=== PATIENT | female | born 1990 | race Caucasian/White ===

== ENCOUNTER 2016-12-09 19:34 | Emergency (ER) | payer OTHER ==
[2016-12-09 20:11] VITALS: BMI 54.6
[2016-12-09] MEDS ORDERED: diphenhydrAMINE HCL 25 MG CAPSULE (FP) PO ONE ×2 (21:19→21:33)
--- NOTE | 2016-12-09 21:49 | PDOC ---
History of Present Illness - General Chief Complaint: Psychiatric Stated Complaint: ANXIETY Time Seen by Provider: 12/09/16 20:34 History Source: Patient Exam Limitations: No Limitations - History of Present Illness Initial Comments: CHIEF COMPLAINT: 26 y/o afebrile female with no significant PMH c/o panic attack today. HISTORY OF PRESENT ILLNESS: The patient states she's been under a lot of stress lately and at home this evening she had a panic attack and she states she felt SOB. She states the symptoms have now resolved and she feels better, except for an unsettled feeling in her stomach. She denies f/c, n/v/d, CP, palpitations, suicidal ideations, homicidal ideations. Vital signs on arrival are notable for pulse of 112. REVIEW OF SYSTEMS: GENERAL/CONSTITUTIONAL: Subjective fever/chills. No weakness. No weight change. HEAD, EYES, EARS, NOSE AND THROAT: No change in vision. No ear pain or discharge. No sore throat. CARDIOVASCULAR: No chest pain or shortness of breath. RESPIRATORY: No cough, wheezing, or hemoptysis. GASTROINTESTINAL: +unsettled stomach. No nausea, vomiting, diarrhea. GENITOURINARY: No dysuria, frequency, or change in urination. MUSCULOSKELETAL: No joint or muscle swelling or pain. No neck or back pain. SKIN: No rash or easy bruising. NEUROLOGIC: No headache, vertigo, loss of consciousness, or loss of sensation. PSYCHIATRIC: No depression or anxiety. +panic attack today PHYSICAL EXAM: GENERAL: The patient is awake, alert, and fully oriented, in no acute distress. She is well appearing and ambulatory. HEAD: Normal with no signs of trauma. ENT: Pupils equal, round and reactive to light, extraocular movements intact, sclera anicteric, conjunctiva clear. Neck supple. LUNGS: Clear to auscultation bilaterally. Normal excursion. No respiratory distress or use of accessory muscles. CV: RRR, S1/S2, no MRG. Cap refill < 2 sec. ABDOMEN: Soft, non-distended, non-tender even to deep palpation, no hepatomegaly or splenomegaly, no masses. EXTREMITIES: Normal range of motion, no edema. NEUROLOGICAL: Normal speech, normal gait. CN II-XII grossly intact. PSYCH: Normal mood, normal affect. SKIN: Warm, dry, normal turgor, no rashes or lesions noted. Past History - Past Medical History Allergies/Adverse Reactions: Allergies Allergy/AdvReac Type Severity Reaction Status Date / Time aspirin Allergy Verified 12/09/16 20:03 Home Medications: Ambulatory Orders NK [No Known Home Medication] 12/09/16 - Surgical History Abdominal Surgery: Yes (Reina tim) - Psycho/Social/Smoking Cessation Hx Suicidal Ideation: No Smoking History: Never smoked Number of Cigarettes Smoked Daily: 0 Information on smoking cessation initiated: No Hx Alcohol Use: No Drug/Substance Use Hx: No *Physical Exam - Vital Signs Last Vital Signs Temp Pulse Resp BP Pulse Ox 98.8 F 112 H 14 132/74 100 12/09/16 20:00 12/09/16 20:00 12/09/16 20:00 12/09/16 20:00 12/09/16 20:00 Heart Score/ECG Review - ECG Intrepretation Comment:: Twelve-lead EKG was performed and reviewed by Dr. Chambers. There is normal sinus rhythm with a normal rate. The axis is normal. The intervals are normal. There are no ST or T wave abnormalities. Impression: Normal twelve-lead EKG Medical Decision Making - Medical Decision Making A/p: 26 y/o female with panic attack today which she states has resolved. Plan is as follows: 1. EKG 2. PO benadryl EKG is NSR with HR = 76 bpm. The patient states she feels much better and wants to go home. She is no longer tachycardic. Provided a referral for psychiatrist if she feels she needs to follow up. Suggested she take benadryl if needed when feeling panicky. Pt instructed to return to the ER with any worsening or concerning symptoms. *DC/Admit/Observation/Transfer Diagnosis at time of Disposition: Panic attack as reaction to stress - Discharge Dispostion Disposition: HOME Condition at time of disposition: Improved - Referrals Referrals: Muna Starks MD [Staff Physician] - - Patient Instructions Printed Discharge Instructions: Anxiety and Panic Attacks (Alternative Therapy) Additional Instructions: Discharge Instructions: -Follow up with your primary care doctor within 1 week -A referral to a psychiatrist was added to your paperwork, should you feel you need a psychiatry follow up -Return to the ER with any worsening or concerning symptoms
[2016-12-09 22:20] VITALS: BP 102/49; PULSE 70; TEMP 98.3
--- NOTE | 2016-12-10 10:34 | EKG ---
Test Reason : Blood Pressure : / mmHG Vent. Rate : 076 BPM Atrial Rate : 076 BPM P-R Int : 122 ms QRS Dur : 078 ms QT Int : 386 ms P-R-T Axes : 066 030 050 degrees QTc Int : 434 ms NORMAL SINUS RHYTHM WITH SINUS ARRHYTHMIA NO PREVIOUS ECGS AVAILABLE Confirmed by DARY ZELAYA MD ([id number]) on 12/10/2016 10:34:00 AM Referred By: Confirmed By:DARY ZELAYA MD
== END 2016-12-09 22:35 | disposition home or self-care (01) ==
LOC: JER 19:34
DX: F43.0 Acute stress reaction (principal); F41.0 Panic disorder [episodic paroxysmal anxiety]
CPT/HCPCS: 93005; 93010; 99281-25

== ENCOUNTER 2018-09-18 06:35 | Inpatient (IN) | payer OTHER ==
[2018-09-18 07:29] VITALS: BMI 30.4
[2018-09-18] MEDS ORDERED: OXYTOCIN 20 UNITS in 0.9% NS 20 UNIT/1,000 ML INFUS.BAG IV ONE (07:52)
[2018-09-18] MEDS ORDERED: ONDANSETRON 4 MG/2 ML VIAL IVPUSH PRN (08:00)
[2018-09-18] MEDS ORDERED: morphine SULFATE/Preservative Free 0.5 MG/ML (1cc Syringe) ONE (08:06)
[2018-09-18] MEDS ORDERED: SUCCINYLCHOLINE CHLORIDE 200 MG/10 ML VIAL ONE (08:10)
--- NOTE | 2018-09-18 08:17 | HP ---
Past Medical History - Admission Chief Complaint: Scheduled RLTCS History of Present Illness: 28yo @ 39.0wks for scheduled No VB/LOF. No ctx. 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: Alzheimer's, CVA, Dementia, Migraine, Multiple Sclerosis, Peripheral Neuropathy, Parkinson's, Seizure, Syncope, TIA, Vertigo, Other Cardiovascular: No: AFIB, Aneurysm, Aortic Insufficiency, Aortic Stenosis, CAD, CHF, Deep Vein Thrombosis, HTN, Hyperlipdemia, [place], Mitral Insufficiency, Mitral Stenosis, Murmur, Pulmonary Hypertension, Other Pulmonary: No: Asthma, Bronchitis, Cancer, COPD, O2 Dependent, Pneumonia, Previously Intubated, Pulmonary Embolus, Pulmonary Fibrosis, Sleep Apnea, Other Gastrointestinal: No: Ascites, Cancer, Constipation, Crohn's Disease, Diverticulitis, Diverticulosis, Esophageal Varices, Gastritis, GERD, GI Bleed, Hemorrhoids, Hiatal Hernia, Inflamatory Bowel Disease, Irritable Bowel Disease, Pancreatitis, Peptic Ulcer Disease, Ulcerative Colitis, Other ...: 2 ...Para: 1 ...Term: 1 ...: 0 ...Spon : 0 ...Induced : 0 ...Multiple Gestation: 0 ...LMP: 12/19/17 ... Weeks Gestation by Dates: 39.0 ...EDC by Dates: 09/25/18 ...EDC by Sono: 09/25/18 Heme/Onc: No: Anemia, B12 Deficiency, Bleeding Disorder, Cancer, Current Chemotherapy, Current Radiation Therapy, Hemochromatosis, Hypercoaguable State, Myeloproliferative Synd, Sickle Cell Disease, Sickle Cell Trait, Thrombocytopenia, Other Infectious Disease: No: AIDS, C-Diff, Herpes Zoster, HIV, MRSA, STD's, Tuberculosis, VREF, Other Psych: No: Addictions, Anxiety, Bipolar, Depression, Panic, Psychosis, Schizophrenia, Other Musculoskeletal: No: Bursitis, Chronic low back pain, Hemiparesis, Hemiplegia, Osteoarthritis, Paraplegia, Other Rheumatology: No: Fibromyalgia, Gout, Lupus, Rheumatoid Arthritis, Sarcoidosis, Vasculitis, Other ENT: No: Allergic Rhinitis, Sinusitis, Other - Past Surgical History Hx Myomectomy: No Hx Transabdominal Cerclage: No - Smoking History Smoking history: Never smoked Have you smoked in the past 12 months: No Aproximately how many cigarettes per day: 0 - Alcohol/Substance Use Hx Alcohol Use: No Home Medications - Allergies Allergies/Adverse Reactions: Allergies Allergy/AdvReac Type Severity Reaction Status Date / Time aspirin Allergy Swelling Verified 09/18/18 07:30 - Home Medications Home Medications: Ambulatory Orders NK [No Known Home Medication] 12/09/16 Physical Exam - Maternity Vital Signs: Vital Signs Temperature 98.5 F 09/18/18 06:35 Pulse Rate 86 09/18/18 06:35 Respiratory Rate 18 09/18/18 06:35 Blood Pressure 136/75 09/18/18 06:35 O2 Sat by Pulse Oximetry (%) Constitutional: Yes: Well Nourished, No Distress, Calm Eyes: Yes: WNL, Conjunctiva Clear, EOM Intact HENT: Yes: WNL, Atraumatic, Normocephalic Neck: Yes: WNL, Supple, Trachea Midline Cardiovascular: Yes: WNL, Regular Rate and Rhythm Breast(s): Yes: WNL - Abdominal Exam/OB Number of Fetuses: Single Presentation: Vertex Contractions: No Category: I Accelerations: Uniform Decelerations: None - Vaginal Exam/OB Vaginal Bleediing: No Amniotic Membrane Status: Intact Presentation: Vertex/Position Assessment/Plan 28yo @ 39.0wks here for scheduled RLTCS Admit to L&D NPO, IVFs Ancef SCDs Risk of procedure explained, including bleeding, infection and injury to bladder , bowel, tubes, ovaries, nerves/arteries/veins.
[2018-09-18] MEDS ORDERED: CITRIC ACID/SODIUM CITRATE 30 ML UNIT-DOSE CUP PO ONE ×2 (08:18→08:19)
[2018-09-18] MEDS ORDERED: ePHEDrine SULFATE 50 MG/1 ML AMPULE ONE (08:51)
[2018-09-18] MEDS ORDERED: OXYTOCIN 10 UNITS/ML VIAL ONE (09:05)
[2018-09-18] MEDS ORDERED: ceFAZolin 2 GRAM PREMIX BAG IVPB ONE (09:30)
--- NOTE | 2018-09-18 09:37 | OP ---
Operative Note - Note: Operative Date: 09/18/18 Pre-Operative Diagnosis: 39week , desires repeat Operation: Repeat Low Transverse Findings: VMI, LISSET, No nuchal or meconium. Weight pending. Apgars 99. Normal tubes and ovaries Post-Operative Diagnosis: Same as Pre-op Surgeon: Karina Muller E Learning Specialist: Mart Galvez Anesthesia: Spinal Estimated Blood Loss (mls): 500 Drains, Volume Out (mls): 400 (clear urine) Operative Report Dictated: Yes
[2018-09-18] MEDS ORDERED: oxyCODONE HCL 5 MG TABLET PO PRN (09:55)
[2018-09-18] MEDS ORDERED: IBUPROFEN 800 MG/8 ML IJ IVPB PRN (09:55)
[2018-09-18] MEDS ORDERED: ACETAMINOPHEN 325 MG TABLET (FP) PO PRN (09:55)
[2018-09-18] MEDS ORDERED: ELECTROLYTE-148 SOLN 1,000 ML IV SCH (10:00)
--- NOTE | 2018-09-18 15:12 | OP ---
DATE OF OPERATION: 09/18/2018 PROCEDURE: Repeat low transverse section. PREOPERATIVE DIAGNOSIS: A 39-week , history of prior delivery , desired elective repeat. POSTOPERATIVE DIAGNOSIS: A 39-week , history of prior delivery, desired elective repeat. SURGEON: Karina Muller MD AUTO CLEANER: MYA Delgado ANESTHESIA: Spinal. IV FLUIDS: Per anesthesia record. ESTIMATED BLOOD LOSS: 500. URINE OUTPUT: 400 mL of clear urine. FINDINGS: Viable male , LISSET. No nuchal. No meconium. Weight pending. Apgars 9, 9. Normal tubes and ovaries bilaterally. COMPLICATIONS: None. CONDITION: Stable to recovery unit. DESCRIPTION OF PROCEDURE: After the appropriate consents were signed, the patient was taken to the operating room where spinal anesthesia was administered. She was placed in supine position with a left lateral tilt. A Wilhelm catheter had been inserted in the preoperative area. The abdomen was then prepped and draped in the normal sterile fashion. A time-out was done confirming correct patient and procedure. A Pfannenstiel incision was made and carried through to the underlying layers in which the fascia was nicked in the midline. The fascia was then extended bilaterally with the Ritchie scissors. The inferior aspect of the fascia was then grasped with 2 Mayte clamps, elevated, and tented upward. The rectus muscles were dissected off with the Ritchie scissors. Attention was then paid to the superior aspect of the fascia, which was also grasped with Kochers, tented upwards. Due to dense adhesions, this was taken down with scalpel. The rectus muscles were in the midline with a scalpel. The peritoneum was entered after being grasped and tented upwards and entered with the Metzenbaum scissors. The peritoneal incision was then extended bluntly. Bladder blade was inserted. Abdomen was checked and cleared of adhesions; however, the rectus muscles midline were tight and not going to be able to accommodate delivery. The rectus muscles were then incised with a Bovie cautery in the midline to accommodate space to help ease of the delivery. Bladder flap was then created with the Metzenbaum scissors. The bladder blade was readjusted. The uterus was incised in a low transverse fashion. Clear amniotic fluid was noted. The infant's head was delivered with the assistance of a vacuum. No popoffs were obtained. The cord was clamped and cut. The was handed off to the pediatric staff. The placenta was removed manually. The uterus was cleared of clot and debris. The uterus was exteriorized and closed in a single imbricating layer with a 0 Vicryl. The left edge of the hysterotomy was reinforced with a [id number] suture of 0 Vicryl to achieve hemostasis. The uterus was then reintroduced back into the abdominal cavity. Bladder blade was reinserted. The hysterotomy was noted to be hemostatic. The gutters were cleared of clot and debris. The bladder blade was removed. The rectus muscles were reapproximated with a mattress suture of 2-0 chromic. Hemostasis was noted. The fascia was closed with 0 Vicryl. Skin was closed with rhonda. Appropriate dressing and bandages were placed. The patient did receive 2 g of Ancef at the start of the procedure. All sponge, lap, needle counts were correct x3. The patient was taken from the operating room to the recovery area in stable condition. KARINA MULLER MD [id number] MTDD
[2018-09-19] MEDS: ACETAMINOPHEN 325 MG TABLET (FP) PO PRN ×2 (06:18→19:39)
[2018-09-19] MEDS: SIMETHICONE 80 MG TAB.CHEW (FP) PO PRN ×2 (06:18→19:38)
[2018-09-19] MEDS: IBUPROFEN 600 MG TABLET (FP) PO PRN ×2 (06:19→19:39)
--- NOTE | 2018-09-19 08:48 | PN ---
Post Progress Note - Subjective Subjective: 34 yo Para 2 status post vaginal delivery seen and evaluated. Doing well Post Day: 1 Type of Delivery: Repeat C/S Vital Signs: Vital Signs Temperature 98.1 F 09/19/18 06:00 Pulse Rate 96 H 09/19/18 06:00 Respiratory Rate 20 09/19/18 08:25 Blood Pressure 108/59 L 09/19/18 06:00 O2 Sat by Pulse Oximetry (%) Breast Exam: Yes: Soft Uterus: Yes: Fundus Firm Incision: Yes: Dressing dry and intact Abdomen/GI: Yes: Abdomen soft Lochia: Yes: Rubra Lochia, amount: Small Extremities: Yes: Calves non-tender Activity: Ambulating Problem List - Problems (1) Status post Code(s): Z98.891 - HISTORY OF UTERINE SCAR FROM PREVIOUS SURGERY Assessment/Plan Status post . Stable Ambulation Analgesia as needed Continue routine post op care
--- NOTE | 2018-09-19 15:44 | PN ---
Progress Note (short form) - Note Progress Note: Anesthesia postop note 28y/o F s/p spinal anesthesia, duramorph for postop pain management POD#1, vss, aaox3, pain well controlled, sensory motor intact distally No anesthesia complications.
--- NOTE | 2018-09-20 08:42 | PN ---
Post Progress Note - Subjective Subjective: no c/o pain , scale 2-3/10 voiding without difficulty bm done Post Day: 2 Type of Delivery: Repeat C/S Vital Signs: Vital Signs Temperature 97.6 F 09/20/18 08:03 Pulse Rate 69 09/20/18 08:03 Respiratory Rate 20 09/20/18 08:03 Blood Pressure 119/61 09/20/18 08:03 O2 Sat by Pulse Oximetry (%) Breast Exam: Yes: Soft, Other (bottle 7 bF ). No: Engorged Uterus: Yes: Fundus Firm, Fundus below umbilicus, Non-tender Incision: Yes: [place] intact. No: Redness, Oozing Abdomen/GI: Yes: Abdomen soft, Passing flatus, Tolerating PO (diet ). No: Abdominal Distention, Tender Lochia: Yes: Rubra Lochia, amount: Small Extremities: Yes: Calves non-tender Perineum: Yes: Intact Activity: Ambulating Problem List - Problems (1) delivery delivered Code(s): O82 - ENCOUNTER FOR DELIVERY WITHOUT INDICATION (2) Encounter for visit Code(s): Z39.2 - ENCOUNTER FOR ROUTINE FOLLOW-UP Assessment/Plan post op cbc pending encourage ambulation pt requests discharge tomorrow.
[2018-09-20] MEDS: ACETAMINOPHEN 325 MG TABLET (FP) PO PRN (22:07)
[2018-09-20] MEDS: IBUPROFEN 600 MG TABLET (FP) PO PRN (22:07)
[2018-09-20] MEDS: SIMETHICONE 80 MG TAB.CHEW (FP) PO PRN (22:07)
[2018-09-20 22:17] VITALS: TEMP 97.7
[2018-09-21 08:12] LABS: BASO % 0.5 % (0-2.0); EOS % 1.8 % (0-4.5); HEMATOCRIT 34.1 % (32.4-45.2); HEMOGLOBIN 11.4 GM/dL (10.7-15.3); MCHC 33.5 g/dl (32.0-36.0); MEAN CELL VOLUME 95.4 fl (80-96); MEAN PLT VOLUME 9.9 fl (7.5-11.1); MONO % 6.6 % (3.8-10.2); NEUT % 77.1 % (42.8-82.8); PLATELET COUNT 153 K/MM3 (134-434); RBC 3.57 M/mm3 (3.60-5.2); RDW 13.4 % (11.6-15.6); WHITE BLOOD COUNT 10.4 K/mm3 (4.0-10.0)
[2018-09-21 08:38] VITALS: BP 116/63; PULSE 68
--- NOTE | 2018-09-21 11:26 | DS ---
Physical Examination Vital Signs: Vital Signs Temperature 97.7 F 09/21/18 08:37 Pulse Rate 68 09/21/18 08:37 Respiratory Rate 20 09/21/18 08:37 Blood Pressure 116/63 09/21/18 08:37 O2 Sat by Pulse Oximetry (%) Constitutional: Yes: Well Nourished, No Distress, Calm Eyes: Yes: WNL, Conjunctiva Clear, EOM Intact HENT: Yes: WNL, Atraumatic, Normocephalic Neck: Yes: WNL, Supple, Trachea Midline Cardiovascular: Yes: WNL, Regular Rate and Rhythm Respiratory: Yes: WNL, Regular, CTA Bilaterally Gastrointestinal: Yes: WNL, Normal Bowel Sounds Musculoskeletal: Yes: WNL Extremities: Yes: WNL Edema: No Integumentary: Yes: WNL Neurological: Yes: WNL, Alert, Oriented ...Motor Strength: WNL Psychiatric: Yes: WNL Labs: CBC, BMP 09/21/18 07:00 Discharge Summary Reason For Visit: Current Active Problems delivery delivered (Acute) Encounter for visit (Acute) Status post (Acute) Hospital Course: Patient presented for a repeat . She met all postoperative milestones and was discharged home on POD#3 Condition: Good - Instructions Diet, Activity, Other Instructions: return to clinic in 1 week for rhonda removal and 6 weeks for check. call [facility] for appointment. Disposition: HOME - Home Medications Comprehensive Discharge Medication List: Ambulatory Orders NK [No Known Home Medication] 12/09/16 Ibuprofen 600 mg PO Q6H PRN #30 tablet 09/21/18 Oxycodone HCl/Acetaminophen [Percocet 5-325 mg Tablet -] 1 - 2 tab PO Q6H PRN # 20 tab MDD 4 09/21/18
--- NOTE | 2018-09-22 18:03 | PATH ---
Surgical Pathology Report Patient Name: COMFORT MCCONNELL [facility]. Rec. #: [id number] /Age/Gender: 1990 (Age: 28) / F Account: [id number] Location: [facility] OBS/CARDIAC MONITOR Taken: 09/18/2018 Received: 09/19/2018 Reported: 09/22/2018 Physicians: Karina Muller Specimen(s) Received PLACENTA Clinical History , 2009 Final Diagnosis PLACENTA, SECTION: 490 G THIRD TRIMESTER PLACENTA WITH TRIVASCULAR UMBILICAL CORD AND UNREMARKABLE PLACENTAL MEMBRANES. Electronically Signed Radha Santiago M.D. Gross Description The specimen is received fresh labeled placenta and is a 490 gram, 16.0 x 14.0 x 3.2 cm. placenta with attached membranes and umbilical cord. The attached membranes are cortés, translucent with focal opacities and insert marginally. The umbilical cord measures 32 cm. in length and averages 1 cm. in diameter. The cord inserts eccentrically, 3.5 cm. to the nearest margin. No true knots or strictures are identified. Cut surface of the umbilical cord reveals 3 vessels. The surface is kessler-blue with minimal fibrin deposition and appropriate caliber vessels. The maternal surface is red-brown with focal defects. Sectioning reveals red-brown, spongy parenchyma. No lesions are identified. Sas Architect sections are submitted in three cassettes as follows: 1- membrane rolls and umbilical cord; 2-3- full thickness sections of placenta. saudi/09/21/2018
== END 2018-09-21 16:00 | disposition home or self-care (01) | DRG 540 ==
LOC: JLDR 06:35 → J3W 11:10
PROVIDERS: ADMIT Obstetrics & Gynecology; ATTEND Obstetrics & Gynecology
PROC: 10D00Z1 Extraction of Products of Conception, Low, Open Approach (ICD-10-PCS; principal; 2018-09-18)
DX: O34.211 Maternal care for low transverse scar from previous cesarean delivery (principal); Z3A.39 39 weeks gestation of pregnancy; Z37.0 Single live birth
CPT/HCPCS: 36415; 85025; 88307-TC

== ENCOUNTER 2019-03-31 18:09 | Emergency (ER) | payer OTHER | END 2019-03-31 21:09 | disposition home or self-care (01) | LOC: JER 18:09 ==

== ENCOUNTER 2019-11-02 06:35 | Inpatient (IN) | payer OTHER ==
[2019-11-02] MEDS ORDERED: ONDANSETRON 4 MG/2 ML VIAL IVPUSH PRN (07:53)
[2019-11-02] MEDS ORDERED: IBUPROFEN 800 MG/8 ML IJ IVPB PRN ×3 (07:55→09:48)
[2019-11-02] MEDS ORDERED: OXYTOCIN 20 UNITS in 0.9% NS 40 UNIT/2,000 ML INFUS.BAG IV ONE (07:59)
[2019-11-02] MEDS ORDERED: CITRIC ACID/SODIUM CITRATE 30 ML UNIT-DOSE CUP PO ONE (08:00)
[2019-11-02] MEDS ORDERED: ELECTROLYTE-148 SOLN 500 ML IV SCH (08:00)
[2019-11-02] MEDS ORDERED: ceFAZolin SODIUM 1 GM VIAL ONE (08:01)
[2019-11-02] MEDS ORDERED: PHENYLEPHRINE HCL 10 MG/1 ML SINGLE DOSE VIAL ONE (08:01)
[2019-11-02] MEDS ORDERED: morphine SULFATE/PF 0.5 MG/ML (2cc Syringe - QUVA) ONE (08:02)
[2019-11-02] MEDS ORDERED: ELECTROLYTE-148 SOLN 1,000 ML IV SCH ×2 (08:30)
--- NOTE | 2019-11-02 08:33 | HP ---
Past Medical History - Admission Chief Complaint: Scheduled RLTCS History of Present Illness: 29yo @ 39+wks here for scheduled RLTCS, BTL. No VB/LOF. No ctx. 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: Alzheimer's, CVA, Dementia, Migraine, Multiple Sclerosis, Peripheral Neuropathy, Parkinson's, Seizure, Syncope, TIA, Vertigo, Other Cardiovascular: No: AFIB, Aneurysm, Aortic Insufficiency, Aortic Stenosis, CAD, CHF, Deep Vein Thrombosis, HTN, Hyperlipdemia, [place], Mitral Insufficiency, Mitral Stenosis, Murmur, Pulmonary Hypertension, Other Pulmonary: No: Asthma, Bronchitis, Cancer, COPD, O2 Dependent, Pneumonia, Previously Intubated, Pulmonary Embolus, Pulmonary Fibrosis, Sleep Apnea, Other Gastrointestinal: No: Ascites, Cancer, Constipation, Crohn's Disease, Diverticulitis, Diverticulosis, Esophageal Varices, Gastritis, GERD, GI Bleed, Hemorrhoids, Hiatal Hernia, Inflamatory Bowel Disease, Irritable Bowel Disease, Pancreatitis, Peptic Ulcer Disease, Ulcerative Colitis, Other Renal/: No: Renal Failure, Renal Inusuff, BPH, Cancer, Hematuria, Hemodialysis , Neurogenic Bladder, Renal Calculi, UTI, Other Reproductive: No: Ectopic , Endometriosis, Fibroids, PID, Polycystic Ovary Syndrome, Postmenopausal, Other ...: 3 ...Para: 2 ...Term: 2 ...: 0 ...Spon : 0 ...Induced : 0 ...Multiple Gestation: 0 ... Weeks Gestation by Dates: 39.3 ...EDC by Dates: 11/06/19 ...EDC by Sono: 11/06/19 Heme/Onc: Yes: Anemia Infectious Disease: No: AIDS, C-Diff, Herpes Zoster, HIV, MRSA, STD's, Tuberculosis, VREF, Other Psych: No: Addictions, Anxiety, Bipolar, Depression, Panic, Psychosis, Schizophrenia, Other Musculoskeletal: No: Bursitis, Chronic low back pain, Hemiparesis, Hemiplegia, Osteoarthritis, Paraplegia, Other Rheumatology: No: Fibromyalgia, Gout, Lupus, Rheumatoid Arthritis, Sarcoidosis, Vasculitis, Other - Past Surgical History Past Surgical History: Yes: Hx Myomectomy: No Hx Transabdominal Cerclage: No Additional Surgical History: Abdominoplasty, Gluteal Enhancement - Smoking History Smoking history: Never smoked Have you smoked in the past 12 months: No Aproximately how many cigarettes per day: 0 - Alcohol/Substance Use Hx Alcohol Use: No Home Medications - Allergies Allergies/Adverse Reactions: Allergies Allergy/AdvReac Type Severity Reaction Status Date / Time aspirin Allergy Swelling Verified 11/02/19 07:49 - Home Medications Home Medications: Ambulatory Orders Mv-Mn/Iron/FA/Herbal/Digestive [ One Tablet] 1 tab PO DAILY 11/02/19 Review of Systems - Review of Systems Constitutional: denies: No Symptoms, Chills, Diaphoresis, Fever, Lethargy, Loss of Appetite, Malaise, Night Sweats, Unintentional Wgt. Loss, Weakness, Other Cardiovascular: denies: No Symptoms, Chest Pain, Edema, Palpitations, Shortness of Breath, Other Respiratory: denies: No Symptoms, Cough, Exercise Intolerance, Hemoptysis, Orthopnea, PND, Snoring, SOB, SOB on Exertion, Wheezing, Other Physical Exam - Maternity - Abdominal Exam/OB Number of Fetuses: Single Presentation: Vertex Contractions: No Accelerations: Non-Uniform Decelerations: None - Vaginal Exam/OB Vaginal Bleediing: No Presentation: Vertex/Position Assessment/Plan 29yo @ 39+wks here for scheduled RLTCS Admit to L&D NPO, IVFs Ancef SCDs Risks reviewed. All questions answered. Consent signed. Nikki Muller MD
[2019-11-02] MEDS ORDERED: DEXAMETHASONE SOD PHOSPHATE 4 MG/1 ML VIAL ONE (09:17)
--- NOTE | 2019-11-02 09:29 | PN ---
Progress Note (short form) - Note Progress Note: Attended RPt C/S for this 29yrs old G3P@002 mother with PNL- nl GBS- Pos not in labor. delivered - clear fluid, criedsoon after suctioned/ dried cord 3V 9/9 InfantPE: clinically stable- pink well perfused Not in Distress Rest PE. nl for age. RNBC Watch for Resp distress Encourage Bf/ Bonding
[2019-11-02] MEDS ORDERED: oxyCODONE HCL 5 MG TABLET PO PRN (09:48)
--- NOTE | 2019-11-02 09:48 | OP ---
Operative Note - Note: Operative Date: 11/02/19 Pre-Operative Diagnosis: 39 week , 2 prior C/S, desires Repeat C- Section, Desires permanent sterilization Operation: Repeat Findings: VMI, Direct OP, Apgars 9/9, Weight 8.10lbs, Normal tubes and ovaries Post-Operative Diagnosis: Same as Pre-op Surgeon: Karina Muller Medieval English Literature Professor: Mart Galvez Anesthesia: Spinal Estimated Blood Loss (mls): 600 Drains, Volume Out (mls): 100 (clear urine) Operative Report Dictated: Yes
[2019-11-02] MEDS: OXYTOCIN 20 UNITS in 0.9% NS 20 UNIT/1,000 ML INFUS.BAG IV SCH ×2 (10:00→17:54)
[2019-11-02 10:20] VITALS: BMI 30.2
[2019-11-02] MEDS: PRENATAL VITAMINS W/ FOLIC ACID TABLET (FP) PO SCH (10:36)
[2019-11-02] MEDS ORDERED: OXYTOCIN 20 UNITS in 0.9% NS 20 UNIT/1,000 ML INFUS.BAG IV ONE ×2 (11:47→17:52)
[2019-11-02] MEDS: METHYLERGONOVINE MALEATE 0.2 MG/1 ML AMP IM PRN ×2 (14:04→15:00)
[2019-11-02] MEDS ORDERED: CARBOPROST TROMETHAMINE 250 MCG/ML AMPUL IM STA (15:00)
[2019-11-02] MEDS: ACETAMINOPHEN 1000 MG/100 ML VIAL (NON FORMULARY) IVPB PRN (15:19)
[2019-11-02] MEDS ORDERED: DIPHENOXYLATE 2.5/ATROPINE.025 1 COMBO TABLET PO STA ×2 (15:20→15:21)
[2019-11-02] MEDS ORDERED: LOPERAMIDE HCL 2 MG CAPSULE PO ONE ×2 (15:45)
--- NOTE | 2019-11-02 16:45 | PN ---
Progress Note (short form) - Note Progress Note: was called to see patient post repeat c/s with increased vaginal bleeding, patient seen and examined Last Vital Signs Temp Pulse Resp BP Pulse Ox 97.4 F L 76 20 113/58 L 100 11/02/19 14:32 11/02/19 14:32 11/02/19 16:00 11/02/19 14:32 11/02/19 11:00 alert, oriented, no distress abdomen soft, no distension pelvic vagina small blood clot several soft clot felt at the os which was expelled with fundal pressure methergine and Hemabate given will do cbc monitor VS and bleeding cont. iv pitocin drip
[2019-11-02 17:32] LABS: BASO % 0.1 % (0-2.0); HEMATOCRIT 34.8 % (32.4-45.2); HEMOGLOBIN 11.6 GM/dL (10.7-15.3); LYMPH % 2.9 % (8-40); MCH 31.9 pg (25.7-33.7); MCHC 33.3 g/dl (32.0-36.0); MEAN CELL VOLUME 95.7 fl (80-96); MEAN PLT VOLUME 10.9 fl (7.5-11.1); MONO % 3.3 % (3.8-10.2); NEUT % 93.7 % (42.8-82.8); PLATELET COUNT 157 K/MM3 (134-434); RBC 3.64 M/mm3 (3.60-5.2); RDW 13.4 % (11.6-15.6); WHITE BLOOD COUNT 25.1 K/mm3 (4.0-10.0)
[2019-11-02] MEDS: FERROUS SO4 325 MG TABLET (FP) PO SCH (18:34)
--- NOTE | 2019-11-02 18:58 | OP ---
DATE OF OPERATION: 11/02/2019 PREOPERATIVE DIAGNOSIS: 39-week , 2 prior sections, desires repeat section, desires permanent sterilization. POSTOPERATIVE DIAGNOSIS: 39-week , 2 prior sections, desires repeat section, desires permanent sterilization. PROCEDURE: Repeat transverse section, Bilateral tubal ligation. ANESTHESIA: Spinal. SURGEON: Karina Muller MD MANAGER OF DISASTER RECOVERY: MYA Delgado INTRAVENOUS FLUIDS: Per anesthesia record. ESTIMATED BLOOD LOSS: 600. URINE OUTPUT: 100 mL of clear urine at the end of the procedure. FINDINGS: Viable male , direct OP presentation, weight 8 pounds 10 ounces. Apgars 9, 9. Normal tubes and ovaries bilaterally. COMPLICATIONS: None. CONDITION: Stable to recovery room. NATURE OF THE PROCEDURE: After the appropriate consents were signed, patient was taken to the operating room. Spinal anesthesia was administered. Sterile Wilhelm catheter had been inserted prior to entry into the operating room. The abdomen was prepped and draped in the normal sterile fashion. Time-out was performed confirming correct patient and procedure. A Pfannenstiel incision was made through the prior incision, carried through to the underlying layers until the fascia was nicked in the midline. The fascia was then extended laterally with the scalpel secondary to dense adhesions. The inferior aspect of the fascia was grasped with the Mayte clamps and tented upwards. The rectus muscles were then dissected bluntly and with a scalpel. Attention was then paid to the superior aspect, which was taken down in a similar fashion. The rectus muscles were in the midline with the scalpel. Peritoneum was entered sharply. Bladder blade was then inserted. Bladder flap was then created with the Metzenbaums. Bladder blade was readjusted. Rectus muscles had to be opened with the Bovie to accommodate space for delivery. The uterus was incised in a low transverse fashion. Clear amniotic fluid was noted. The 's head was delivered without difficulty as were the remaining shoulder and body. The cord was clamped and cut. The infant was handed off to the awaiting pediatric staff. The placenta was then removed manually. The uterus was exteriorized, cleared of all clot and debris. The hysterotomy was closed with a single, vertical, imbrication layer with a 1-0 Vicryl with good hemostasis. The adnexa were inspected bilaterally. Noted to be normal. The attention was then paid to the tubal sterilization. The patient's left fallopian tube was grasped with a [place], carried through to the fimbriated edges, which were noted to be normal in the isthmic portion of the tube. The tube was then suture ligated in the modified Jeni fashion with a 2-0 plain. The tubal stumps were cauterized with the Bovie. The tubal segment that was removed was sent off for pathology. Attention was then paid to the patient's right fallopian tube, which was taken down in a similar fashion. Both tubal areas were re- evaluated. The patient's left tube had to be suture ligated an additional time to achieve hemostasis as 1 of the knots slipped with an additional 2-0 plain. Hemostasis was achieved. The hysterotomy was re-examined. Noted to be hemostatic. The uterus was then returned to the abdominal cavity. The hysterotomy was re-examined and noted to be hemostatic. The adnexal sites were also re-examined and noted to be normal and hemostatic. The muscles were reapproximated with a 2-0 chromic. The fascia was reapproximated with a 0 Vicryl. The subcutaneous tissue was reapproximated with a 3-0 plain. Skin was closed with a 3-0 Vicryl. All sponge, lap, needle counts were correct x3. The patient did receive Ancef at the start of the procedure. She was taken from the operating room to the recovery area in stable condition. MD KE LOU/[id number] MTDD
[2019-11-02 19:50] LABS: PLATELET ESTIMATE ADEQUATE
[2019-11-02 19:51] LABS: MACROCYTOSIS 1+
[2019-11-03] MEDS: ACETAMINOPHEN 1000 MG/100 ML VIAL (NON FORMULARY) IVPB PRN (07:40)
[2019-11-03 07:43] LABS: BASO % 0.4 % (0-2.0); EOS % 0.2 % (0-4.5); HEMATOCRIT 27.8 % (32.4-45.2); HEMOGLOBIN 9.3 GM/dL (10.7-15.3); MCHC 33.4 g/dl (32.0-36.0); MEAN CELL VOLUME 95.7 fl (80-96); MEAN PLT VOLUME 10.8 fl (7.5-11.1); MONO % 5.8 % (3.8-10.2); NEUT % 84.6 % (42.8-82.8); PLATELET COUNT 129 K/MM3 (134-434); RDW 13.3 % (11.6-15.6); WHITE BLOOD COUNT 16.9 K/mm3 (4.0-10.0)
--- NOTE | 2019-11-03 07:59 | PN ---
Progress Note (short form) - Note Progress Note: pod 1 , s/p c/s , doing well, no excess vaginal bleeding, no dizziness Last Vital Signs Temp Pulse Resp BP Pulse Ox 98.2 F 90 20 98/58 L 100 11/03/19 06:00 11/03/19 06:00 11/03/19 06:00 11/03/19 06:00 11/02/19 11:00 abdomen soft, no distension, no cva incision dry, clean lochia mild no calf tenderness plan ambulate repeat cbc today pain management revaluate
[2019-11-03] MEDS: FERROUS SO4 325 MG TABLET (FP) PO SCH ×2 (09:24→19:08)
[2019-11-03] MEDS ORDERED: BISACODYL 10 MG SUPP.RECT RC PRN (09:48)
[2019-11-03] MEDS: PRENATAL VITAMINS W/ FOLIC ACID TABLET (FP) PO SCH (10:55)
[2019-11-03] MEDS ORDERED: ACETAMINOPHEN 325 MG TABLET (FP) ONE (16:56)
[2019-11-03] MEDS: ACETAMINOPHEN 325 MG TABLET (FP) PO PRN (16:58)
[2019-11-03] MEDS: SIMETHICONE 80 MG TAB.CHEW (FP) PO PRN (16:59)
[2019-11-03] MEDS: IBUPROFEN 600 MG TABLET (FP) PO PRN (16:59)
--- NOTE | 2019-11-03 17:16 | PN ---
Progress Note (short form) - Note Progress Note: 29F s/p spinal anesthesia for now POD#1. Pt. seen and examined and found to be doing well. No anesthesia related complications. Continue management per primary team.
[2019-11-04] MEDS: SIMETHICONE 80 MG TAB.CHEW (FP) PO PRN ×2 (07:05→20:14)
[2019-11-04] MEDS: IBUPROFEN 600 MG TABLET (FP) PO PRN ×2 (07:05→20:14)
[2019-11-04] MEDS: ACETAMINOPHEN 325 MG TABLET (FP) PO PRN ×2 (07:05→20:15)
[2019-11-04] MEDS: PRENATAL VITAMINS W/ FOLIC ACID TABLET (FP) PO SCH (09:26)
[2019-11-04] MEDS: FERROUS SO4 325 MG TABLET (FP) PO SCH ×2 (09:26→18:43)
--- NOTE | 2019-11-04 10:49 | PN ---
Progress Note (short form) - Note Progress Note: pod 2 s/p repeat c/s. has no c/o, voids ok, ,passing gas , no excess vaginal bleeding CBC, BMP 11/03/19 07:15 Last Vital Signs Temp Pulse Resp BP Pulse Ox 98.2 F 96 H 20 85/56 L 100 11/03/19 21:39 11/03/19 21:39 11/03/19 21:39 11/03/19 21:39 11/02/19 11:00 abdomen soft, no cva, no distension incision dry, clean, no discharge no excess vaginal bleeding, no calf tenderness plan ambulate , cbc in am
[2019-11-05 08:03] LABS: BASO % 0.4 % (0-2.0); EOS % 1.2 % (0-4.5); HEMATOCRIT 29.2 % (32.4-45.2); HEMOGLOBIN 9.8 GM/dL (10.7-15.3); LYMPH % 16.5 % (8-40); MCH 32.5 pg (25.7-33.7); MCHC 33.5 g/dl (32.0-36.0); MEAN CELL VOLUME 96.9 fl (80-96); MEAN PLT VOLUME 10.2 fl (7.5-11.1); MONO % 5.6 % (3.8-10.2); NEUT % 76.3 % (42.8-82.8); PLATELET COUNT 157 K/MM3 (134-434); RBC 3.02 M/mm3 (3.60-5.2); RDW 13.5 % (11.6-15.6)
[2019-11-05] MEDS: PRENATAL VITAMINS W/ FOLIC ACID TABLET (FP) PO SCH (09:28)
[2019-11-05] MEDS: FERROUS SO4 325 MG TABLET (FP) PO SCH (09:28)
[2019-11-05 11:50] VITALS: BP 118/72; PULSE 84; TEMP 98.3
--- NOTE | 2019-11-12 11:37 | PATH ---
Surgical Pathology Report Patient Name: COMFORT MCCONNELL [facility]. Rec. 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 PLACENTA, SECTION: 519 G THIRD TRIMESTER PLACENTA WITH TRIVASCULAR UMBILICAL CORD AND UNREMARKABLE PLACENTAL MEMBRANES. B. FALLOPIAN TUBE, RIGHT, PARTIAL EXCISION: WALTHARD NEST CYST AND FULL LUMINAL PORTION OF FALLOPIAN TUBE. C. FALLOPIAN TUBE, LEFT, PARTIAL EXCISION: FULL LUMINAL PORTION OF UNREMARKABLE FALLOPIAN TUBE. Electronically Signed Radha Santiago M.D. Gross Description A. The specimen is received fresh labeled placenta and is a 519 gram, 18.5 x 16.0 x 3.0 cm. placenta with attached membranes and umbilical cord. The attached membranes are cortés, translucent with focal opacities and insert marginally. The umbilical cord measures 25 cm. in length and averages 1.2 cm. in diameter. The cord inserts eccentrically, 5 cm. to the nearest margin. No true knots or strictures are identified. Cut surface of the umbilical cord reveals 3 vessels. The surface is kessler-blue with minimal fibrin deposition and appropriate caliber vessels. The maternal surface is red-brown with focal defects. Sectioning reveals red-brown, spongy parenchyma. No lesions are identified. Brim Setter sections are submitted in three cassettes as follows: 1- membrane rolls and umbilical cord; 2-3- full thickness sections of placenta. B. Received in formalin labeled "portion of right fallopian tube," is a 1.6 cm in length portion of fallopian tube. No fimbria are present. The outer surface is cortés-chaparro and smooth. Sectioning reveals an unremarkable lumen. Brim Setter sections are submitted in one cassette. C. Received in formalin labeled "portion of left fallopian tube," is a 1.1 cm in length portion of fallopian tube. No fimbria are present. The outer surface is cortés-chaparro and smooth. Sectioning reveals an unremarkable lumen. Brim Setter sections are submitted in one cassette. 11/09/2019 [facility]/09/2019
== END 2019-11-05 12:06 | disposition home or self-care (01) | DRG 540 ==
LOC: JLDR 06:35 → J3W 12:00
PROVIDERS: ADMIT Obstetrics & Gynecology; ATTEND Obstetrics & Gynecology
PROC: 10D00Z1 Extraction of Products of Conception, Low, Open Approach (ICD-10-PCS; principal; 2019-11-02)
PROC: 0UB70ZZ Excision of Bilateral Fallopian Tubes, Open Approach (ICD-10-PCS; 2019-11-02)
DX: O34.211 Maternal care for low transverse scar from previous cesarean delivery (principal); N85.8 Other specified noninflammatory disorders of uterus; Z3A.39 39 weeks gestation of pregnancy; Z30.2 Encounter for sterilization; Z37.0 Single live birth
CPT/HCPCS: 36415; 85025; 88302-TC; 88307-TC; J0131

== ENCOUNTER 2022-02-27 10:11 | Observation (INO) | payer OTHER ==
[2022-02-27] MEDS ORDERED: ONDANSETRON 4 MG/2 ML VIAL IVPUSH ONE (11:33)
[2022-02-27] MEDS ORDERED: SODIUM CHLORIDE 1,000 ML IV STA ×2 (11:33→15:33)
[2022-02-27] MEDS ORDERED: ACETAMINOPHEN 1000 MG/100 ML BAG IVPB ONE (11:33)
[2022-02-27] MEDS ORDERED: ACETAMINOPHEN INJECTION 100 ML IVPB ONE (11:43)
[2022-02-27] MEDS ORDERED: ONDANSETRON 4 MG/2 ML VIAL ONE (11:43)
[2022-02-27 12:20] LABS: HEMATOCRIT 39.8 % (32.4-45.2); HEMOGLOBIN 13.1 GM/dL (10.7-15.3); MCH 29.1 pg (25.7-33.7); MCHC 32.9 g/dl (32.0-36.0); MEAN CELL VOLUME 88.7 fl (80-96); MEAN PLT VOLUME 9.8 fl (7.5-11.1); PLATELET COUNT 264 10^3/uL (134-434); RBC 4.49 M/mm3 (3.60-5.2); RDW 13.3 % (11.6-15.6); WHITE BLOOD COUNT 14.8 K/mm3 (4.0-10.0)
[2022-02-27 12:24] LABS: EPI CELLS >36 /uL (0-25.1); HYALINE CASTS 2 /uL (0-3.1); URINE APPEARANCE CLOUDY; URINE BACTERIA 1286 /uL (0-1359); URINE BILIRUBIN NEGATIVE (NEGATIVE); URINE COLOR YELLOW; URINE GLUCOSE (UA) NEGATIVE (NEGATIVE); URINE KETONE NEGATIVE (NEGATIVE); URINE LEUK ESTERASE NEGATIVE (NEGATIVE); URINE NITRITE NEGATIVE (NEGATIVE); URINE PROTEIN NEGATIVE (NEGATIVE); URINE RBC 12 /uL (0-23.9); URINE UROBILINOGEN 0.2 mg/dL (0.2-1.0); URINE WBC 11 /uL (0-25.8)
[2022-02-27 12:25] LABS: HCG,QUALITATIVE URINE Negative
[2022-02-27 12:38] LABS: CHLORIDE 105 mmol/L (98-107); SODIUM 130 mmol/L (136-145)
[2022-02-27 12:40] LABS: CALCIUM 8.7 mg/dL (8.5-10.1)
[2022-02-27 12:41] LABS: ALBUMIN 3.5 g/dl (3.4-5.0); CO2 24 mmol/L (21-32); GLUCOSE,RANDOM 101 mg/dL (74-106); LIPASE 93 U/L (73-393)
[2022-02-27 12:44] LABS: ANISOCYTOSIS 0; CREATININE 0.9 mg/dL (0.55-1.3); MACROCYTOSIS 0
[2022-02-27 12:45] LABS: BILIRUBIN,TOTAL 1.2 mg/dL (0.2-1); TOT PROT 8.5 g/dl (6.4-8.2)
[2022-02-27 12:47] LABS: ALK PHOS 95 U/L (45-117)
[2022-02-27 13:04] LABS: ANION GAP 1 MMOL/L (8-16); SGOT/AST 128 U/L (15-37); SGPT/ALT 49 U/L (13-61)
[2022-02-27 14:24] LABS: CALCIUM 8.2 mg/dL (8.5-10.1)
[2022-02-27 14:25] LABS: ALBUMIN 3.4 g/dl (3.4-5.0); BLOOD UREA NITROGEN 8.5 mg/dL (7-18)
[2022-02-27 14:28] LABS: CREATININE 0.7 mg/dL (0.55-1.3)
[2022-02-27 14:30] LABS: TOT PROT 6.8 g/dl (6.4-8.2)
[2022-02-27] MEDS ORDERED: SODIUM PHOSPHATE/NA BIPHOS 133 ML ENEMA PR ONE (15:05)
[2022-02-27] MEDS ORDERED: PIPERACILLIN/TAZOB 4.5 GM 4.5 GM in DEXTROSE 5%-WATER 100 ML IVPB ONE (15:25)
[2022-02-27] MEDS ORDERED: VANCOMYCIN 1 GM in D5W (PRE-DOCKED) 1,000 MG/250 ML IVPB ONE (15:25)
[2022-02-27] MEDS ORDERED: DOCUSATE SODIUM 100 MG CAPSULE (FP) PO PRN (16:18)
[2022-02-27] MEDS ORDERED: BISACODYL 5 MG TABLET.DR (FP) PO PRN (16:20)
[2022-02-27] MEDS ORDERED: PIPERACILLIN/TAZOB 4.5 GM 4.5 GM/100 ML BAG IVPB ONE (17:08)
[2022-02-27] MEDS ORDERED: VANCOMYCIN 1 GRAM (PRE-DOCKED) 1,000 MG/250 ML BAG IVPB ONE (17:08)
[2022-02-27] MEDS ORDERED: FAMOTIDINE 20 MG/50 ML IVPB 20 MG/50 ML MG IVPB ONE (18:03)
[2022-02-27] MEDS ORDERED: methylPREDNISolone NA SUCC 125 MG/2 ML VIAL IVPUSH ONE (18:03)
[2022-02-27] MEDS ORDERED: FAMOTIDINE 10 MG/ML VIAL IVPB ONE (18:04)
[2022-02-27] MEDS ORDERED: methylPREDNISolone NA SUCC 125 MG/2 ML VIAL ONE (18:04)
[2022-02-27] MEDS ORDERED: PIPERACILLIN/TAZOB 3.375 GM 3.375 GM in DEXTROSE 5%-WATER - 50 ML IVPB SCH (23:00)
[2022-02-27 23:30] VITALS: BMI 27.6
[2022-02-28] MEDS ORDERED: PIPERACILLIN/TAZOB 3.375 GM 3.375 GM in DEXTROSE 5%-WATER - 50 ML IVPB SCH
[2022-02-28] MEDS ORDERED: AZTREONAM 2 GM VIAL (RESTRICTED TO ID) ONE ×3 (01:06→21:11)
[2022-02-28] MEDS ORDERED: DEXTROSE 5%-WATER 100 ML IVPB ONE ×3 (01:06→21:12)
[2022-02-28] MEDS: AZTREONAM 2 GM in DEXTROSE 5%-WATER 100 ML IVPB SCH ×3 (01:36→21:15)
[2022-02-28 09:29] LABS: HEMOGLOBIN 12.2 GM/dL (10.7-15.3); MCH 29.3 pg (25.7-33.7); MCHC 32.9 g/dl (32.0-36.0); MEAN CELL VOLUME 88.9 fl (80-96); MEAN PLT VOLUME 9.7 fl (7.5-11.1); PLATELET COUNT 280 10^3/uL (134-434); RBC 4.16 M/mm3 (3.60-5.2); WHITE BLOOD COUNT 13.8 K/mm3 (4.0-10.0)
[2022-02-28 10:05] LABS: ALBUMIN 3.3 g/dl (3.4-5.0); CALCIUM 8.9 mg/dL (8.5-10.1)
[2022-02-28 10:06] LABS: CREATININE 0.7 mg/dL (0.55-1.3)
[2022-02-28 10:08] LABS: BILIRUBIN,TOTAL 0.4 mg/dL (0.2-1)
[2022-03-01] MEDS ORDERED: AZTREONAM 2 GM in DEXTROSE 5%-WATER 100 ML IVPB SCH ×2 (10:00→18:00)
[2022-03-01] MEDS ORDERED: DEXTROSE 5%-WATER 100 ML IVPB ONE ×2 (10:36→17:17)
[2022-03-01] MEDS ORDERED: AZTREONAM 2 GM VIAL (RESTRICTED TO ID) ONE ×2 (10:36→17:17)
[2022-03-01 11:55] LABS: BASO % 0.2 % (0-2.0); EOS % 0.1 % (0-4.5); HEMATOCRIT 37.4 % (32.4-45.2); HEMOGLOBIN 12.6 GM/dL (10.7-15.3); LYMPH % 11.8 % (8-40); MCH 29.7 pg (25.7-33.7); MCHC 33.6 g/dl (32.0-36.0); MEAN CELL VOLUME 88.3 fl (80-96); MEAN PLT VOLUME 9.4 fl (7.5-11.1); MONO % 6.5 % (3.8-10.2); NEUT % 81.4 % (42.8-82.8); PLATELET COUNT 266 10^3/uL (134-434); RBC 4.23 M/mm3 (3.60-5.2); RDW 13.2 % (11.6-15.6); WHITE BLOOD COUNT 11.3 K/mm3 (4.0-10.0)
[2022-03-01 14:37] VITALS: BP 98/55; PULSE 67; TEMP 98.5
== END 2022-03-01 21:38 | disposition home or self-care (01) ==
LOC: JER 10:11 → INTOOBSV 15:52 → JERBED 15:52 → J5S 20:26
PROVIDERS: ADMIT Internal Medicine; ATTEND Internal Medicine
PROC: 3E03329 Introduction of Other Anti-infective into Peripheral Vein, Percutaneous Approach (ICD-10-PCS; principal; 2022-02-27)
PROC: 3E033NZ Introduction of Analgesics, Hypnotics, Sedatives into Peripheral Vein, Percutaneous Approach (ICD-10-PCS; 2022-02-27)
PROC: 3E033GC Introduction of Other Therapeutic Substance into Peripheral Vein, Percutaneous Approach (ICD-10-PCS; 2022-02-27)
PROC: 3E0337Z Introduction of Electrolytic and Water Balance Substance into Peripheral Vein, Percutaneous Approach (ICD-10-PCS; 2022-02-27)
DX: R00.0 Tachycardia, unspecified (principal); D72.825 Bandemia; E06.3 Autoimmune thyroiditis; D64.9 Anemia, unspecified; F41.9 Anxiety disorder, unspecified; R53.83 Other fatigue; M62.81 Muscle weakness (generalized); F41.0 Panic disorder [episodic paroxysmal anxiety]; E06.9 Thyroiditis, unspecified; Z88.8 Allergy status to other drugs, medicaments and biological substances
CPT/HCPCS: 36415; 71046-TC-FY; 74177-TC; 76705-TC; 76856-TC; 80053; 80061; 81003; 82308; 82550; 83605; 83690; 84439; 84443; 84479; 84481; 84703; 85025; 85027; 87040; 87086; 87804; 93005; 93010; 96361; 96365; 96366; 96367; 96375; 99285-25; C9803-CS; G0378; Q9967; U0003; U0005